=== PATIENT | male | born 1960 | race Caucasian/White ===

== ENCOUNTER 2016-12-17 17:10 | Emergency (ER) | payer OTHER | END 2016-12-17 21:48 | disposition other institution (70) | LOC: ER 17:10 | DX: J18.9 Pneumonia, unspecified organism (principal); R09.02 Hypoxemia; R00.0 Tachycardia, unspecified; I10 Essential (primary) hypertension; F17.210 Nicotine dependence, cigarettes, uncomplicated | CPT/HCPCS: 99285-25 ==

== ENCOUNTER 2016-12-17 17:10 | Inpatient (IN) | payer OTHER | END 2016-12-21 16:03 | disposition home or self-care (01) | DRG 871 | LOC: ER 17:10 → MS 21:48 | PROVIDERS: ADMIT Family Medicine | PROC: 3E0234Z Introduction of Serum, Toxoid and Vaccine into Muscle, Percutaneous Approach (ICD-10-PCS; principal; 2016-12-21) | DX: A41.9 Sepsis, unspecified organism (principal); J13 Pneumonia due to Streptococcus pneumoniae; F10.239 Alcohol dependence with withdrawal, unspecified; F10.251 Alcohol dependence with alcohol-induced psychotic disorder with hallucinations; K92.0 Hematemesis; F20.9 Schizophrenia, unspecified; R11.0 Nausea; I10 Essential (primary) hypertension; F41.9 Anxiety disorder, unspecified; M54.9 Dorsalgia, unspecified; R25.1 Tremor, unspecified; F32.9 Major depressive disorder, single episode, unspecified; R45.1 Restlessness and agitation; R19.7 Diarrhea, unspecified; F17.210 Nicotine dependence, cigarettes, uncomplicated; Z83.6 Family history of other diseases of the respiratory system; Z23 Encounter for immunization ==

== ENCOUNTER 2017-01-31 19:30 | Emergency (ER) | payer OTHER ==
[2017-01-31 19:57] LABS: BASO # 0.1 10_X3_uL (0.0-0.1); BASO % 0.6 % (0.2-1.2); EOS # 0.3 10_X3_uL (0.0-0.5); EOS % 2.8 % (0.8-7.0); GRAN # 5.2 10_X3_uL (1.8-5.4); GRAN % 45.1 % (34.0-67.9); HEMATOCRIT 35.4 % (40-51); HEMOGLOBIN 11.9 g/dL (13.7-17.5); LYMPH # 4.9 10_X3_uL (1.3-3.6); LYMPH % 42.5 % (21.8-53.1); MEAN CORPUSCULAR HEMOGLOBIN 33.8 pg (27.0-33.0); MEAN CORPUSCULAR HGB CONC 33.6 g/dL (32.0-36.0); MEAN CORPUSCULAR VOLUME 100.6 fL (79-92); MEAN PLATELET VOLUME 9.1 fl (7.5-11.5); PLATELET COUNT 251 x10_3/uL (163-337); RED BLOOD COUNT 3.52 x10_6/uL (4.6-6.1); RED CELL DISTRIBUTION WIDTH 15.2 % (11.6-14.4); WHITE BLOOD COUNT 11.6 x10_3/uL (4.2-9.1)
[2017-01-31 20:11] LABS: ALBUMIN 3.3 gm/dL (3.4-5.0); ALKALINE PHOSPHATASE 106 U/L (50-136); ALT/SGPT 14 U/L (7.53-40.17); AST/SGOT 18 U/L (6.66-35.34); BILIRUBIN,TOTAL 0.33 mg/dL (0.0-1.0); BLOOD UREA NITROGEN 11 mg/dL (7-18); CALCIUM 9.2 mg/dL (8.7-10.7); CARBON DIOXIDE 22 mmol/L (21-32); CREATINE KINASE 42 U/L (35-232); CREATININE 0.9 mg/dL (0.6-1.3); GLUCOSE,RANDOM 135 mg/dL (70-99); POTASSIUM 3.7 mmol/L (3.5-5.1); SODIUM 138 mmol/L (136-145); TOTAL PROTEIN 9.9 gm/dL (6.4-8.2)
== END 2017-01-31 22:25 | disposition home or self-care (01) ==
LOC: ER 19:30
PROVIDERS: Emergency Medicine
DX: R07.89 Other chest pain (principal); J40 Bronchitis, not specified as acute or chronic; I10 Essential (primary) hypertension; F17.210 Nicotine dependence, cigarettes, uncomplicated; Z79.899 Other long term (current) drug therapy
CPT/HCPCS: 36415; 71250; 80053; 82550; 82553; 85025; 85379; 86738; 87449; 96365; 96375; 99070; 99284-25; J1170

== ENCOUNTER 2017-02-06 09:33 | Inpatient (IN) | payer OTHER ==
[~2017-02-06] VITALS: Ht 172.7 cm; Wt 84.0 kg
[2017-02-06 10:08] LABS: BASO # 0.1 10_X3_uL (0.0-0.1); BASO % 0.9 % (0.2-1.2); EOS # 0.4 10_X3_uL (0.0-0.5); EOS % 3.6 % (0.8-7.0); GRAN # 6.6 10_X3_uL (1.8-5.4); GRAN % 53.1 % (34.0-67.9); HEMATOCRIT 36.2 % (40-51); LYMPH # 3.9 10_X3_uL (1.3-3.6); LYMPH % 31.3 % (21.8-53.1); MEAN CORPUSCULAR HEMOGLOBIN 33.3 pg (27.0-33.0); MEAN CORPUSCULAR HGB CONC 33.1 g/dL (32.0-36.0); MEAN CORPUSCULAR VOLUME 100.6 fL (79-92); MEAN PLATELET VOLUME 8.8 fl (7.5-11.5); MONO # 1.4 10_X3_uL (0.3-0.8); MONO % 11.1 % (5.3-12.2); PLATELET COUNT 286 x10_3/uL (163-337); RED CELL DISTRIBUTION WIDTH 15.3 % (11.6-14.4); WHITE BLOOD COUNT 12.4 x10_3/uL (4.2-9.1)
[2017-02-06 10:26] LABS: BLOOD UREA NITROGEN 10 mg/dL (7-18); CALCIUM 9.9 mg/dL (8.7-10.7); CARBON DIOXIDE 19 mmol/L (21-32); CREATININE 0.9 mg/dL (0.6-1.3); GLUCOSE,RANDOM 122 mg/dL (70-99); POTASSIUM 3.9 mmol/L (3.5-5.1); SODIUM 134 mmol/L (136-145)
[2017-02-07 06:57] LABS: HEMATOCRIT 33.8 % (40-51); HEMOGLOBIN 11.2 g/dL (13.7-17.5); MEAN CORPUSCULAR HEMOGLOBIN 33.3 pg (27.0-33.0); MEAN CORPUSCULAR HGB CONC 33.1 g/dL (32.0-36.0); MEAN CORPUSCULAR VOLUME 100.6 fL (79-92); MEAN PLATELET VOLUME 8.9 fl (7.5-11.5); RED BLOOD COUNT 3.36 x10_6/uL (4.6-6.1); RED CELL DISTRIBUTION WIDTH 15.3 % (11.6-14.4); WHITE BLOOD COUNT 14.5 x10_3/uL (4.2-9.1)
[2017-02-07 07:12] LABS: ALBUMIN 3.2 gm/dL (3.4-5.0); ALKALINE PHOSPHATASE 87 U/L (50-136); ALT/SGPT 23 U/L (7.53-40.17); AST/SGOT 26 U/L (6.66-35.34); BILIRUBIN,TOTAL 0.29 mg/dL (0.0-1.0); BLOOD UREA NITROGEN 12 mg/dL (7-18); CALCIUM 9.5 mg/dL (8.7-10.7); CARBON DIOXIDE 22 mmol/L (21-32); CREATININE 0.7 mg/dL (0.6-1.3); GLUCOSE,RANDOM 156 mg/dL (70-99); POTASSIUM 3.9 mmol/L (3.5-5.1); SODIUM 136 mmol/L (136-145); TOTAL PROTEIN 10.1 gm/dL (6.4-8.2)
[2017-02-08 07:09] LABS: ALBUMIN 3.1 gm/dL (3.4-5.0); ALKALINE PHOSPHATASE 82 U/L (50-136); ALT/SGPT 31 U/L (7.53-40.17); AST/SGOT 29 U/L (6.66-35.34); BILIRUBIN,TOTAL 0.38 mg/dL (0.0-1.0); BLOOD UREA NITROGEN 16 mg/dL (7-18); CALCIUM 9.3 mg/dL (8.7-10.7); CARBON DIOXIDE 24 mmol/L (21-32); CREATININE 0.8 mg/dL (0.6-1.3); GLUCOSE,RANDOM 120 mg/dL (70-99); POTASSIUM 3.9 mmol/L (3.5-5.1); SODIUM 137 mmol/L (136-145); TOTAL PROTEIN 9.8 gm/dL (6.4-8.2)
[2017-02-08 07:13] LABS: BASO # 0.1 10_X3_uL (0.0-0.1); BASO % 0.3 % (0.2-1.2); EOS # 0.1 10_X3_uL (0.0-0.5); EOS % 0.6 % (0.8-7.0); GRAN # 11.3 10_X3_uL (1.8-5.4); GRAN % 65.8 % (34.0-67.9); HEMOGLOBIN 11.1 g/dL (13.7-17.5); LYMPH # 4.1 10_X3_uL (1.3-3.6); LYMPH % 23.6 % (21.8-53.1); MEAN CORPUSCULAR HEMOGLOBIN 33.3 pg (27.0-33.0); MEAN CORPUSCULAR HGB CONC 32.6 g/dL (32.0-36.0); MEAN CORPUSCULAR VOLUME 102.1 fL (79-92); MEAN PLATELET VOLUME 9.4 fl (7.5-11.5); MONO # 1.7 10_X3_uL (0.3-0.8); MONO % 9.7 % (5.3-12.2); PLATELET COUNT 313 x10_3/uL (163-337); RED BLOOD COUNT 3.33 x10_6/uL (4.6-6.1); RED CELL DISTRIBUTION WIDTH 15.4 % (11.6-14.4); WHITE BLOOD COUNT 17.2 x10_3/uL (4.2-9.1)
[2017-02-09 07:34] LABS: HEMOGLOBIN 12.3 g/dL (13.7-17.5); MEAN CORPUSCULAR HEMOGLOBIN 33.2 pg (27.0-33.0); MEAN CORPUSCULAR HGB CONC 32.4 g/dL (32.0-36.0); MEAN CORPUSCULAR VOLUME 102.4 fL (79-92); MEAN PLATELET VOLUME 8.9 fl (7.5-11.5); RED BLOOD COUNT 3.71 x10_6/uL (4.6-6.1); RED CELL DISTRIBUTION WIDTH 15.6 % (11.6-14.4); WHITE BLOOD COUNT 17.6 x10_3/uL (4.2-9.1)
[2017-02-09 07:45] LABS: ALBUMIN 3.1 gm/dL (3.4-5.0); ALKALINE PHOSPHATASE 87 U/L (50-136); ALT/SGPT 32 U/L (7.53-40.17); AST/SGOT 25 U/L (6.66-35.34); BLOOD UREA NITROGEN 15 mg/dL (7-18); CALCIUM 9.8 mg/dL (8.7-10.7); CARBON DIOXIDE 25 mmol/L (21-32); CREATININE 0.7 mg/dL (0.6-1.3); GLUCOSE,RANDOM 112 mg/dL (70-99); SODIUM 132 mmol/L (136-145); TOTAL PROTEIN 10.1 gm/dL (6.4-8.2)
[2017-02-09 07:54] LABS: BILIRUBIN,TOTAL < 0.15 mg/dL (0.0-1.0)
[2017-02-10 07:20] LABS: BASO # 0.1 10_X3_uL (0.0-0.1); BASO % 0.5 % (0.2-1.2); EOS # 0.4 10_X3_uL (0.0-0.5); EOS % 2.3 % (0.8-7.0); GRAN # 9.5 10_X3_uL (1.8-5.4); GRAN % 52.1 % (34.0-67.9); HEMATOCRIT 36.4 % (40-51); HEMOGLOBIN 11.7 g/dL (13.7-17.5); LYMPH % 33.1 % (21.8-53.1); MEAN CORPUSCULAR HEMOGLOBIN 32.9 pg (27.0-33.0); MEAN CORPUSCULAR HGB CONC 32.1 g/dL (32.0-36.0); MEAN CORPUSCULAR VOLUME 102.2 fL (79-92); MEAN PLATELET VOLUME 8.9 fl (7.5-11.5); MONO # 2.2 10_X3_uL (0.3-0.8); PLATELET COUNT 339 x10_3/uL (163-337); RED BLOOD COUNT 3.56 x10_6/uL (4.6-6.1); RED CELL DISTRIBUTION WIDTH 15.4 % (11.6-14.4); WHITE BLOOD COUNT 18.2 x10_3/uL (4.2-9.1)
[2017-02-10 07:36] LABS: ALKALINE PHOSPHATASE 84 U/L (50-136); ALT/SGPT 32 U/L (7.53-40.17); AST/SGOT 24 U/L (6.66-35.34); BILIRUBIN,TOTAL 0.34 mg/dL (0.0-1.0); BLOOD UREA NITROGEN 20 mg/dL (7-18); CALCIUM 9.9 mg/dL (8.7-10.7); CARBON DIOXIDE 26 mmol/L (21-32); CREATININE 0.9 mg/dL (0.6-1.3); GLUCOSE,RANDOM 123 mg/dL (70-99); SODIUM 134 mmol/L (136-145); TOTAL PROTEIN 9.8 gm/dL (6.4-8.2)
[2017-02-11 12:06] LABS: HEMATOCRIT 37.3 % (40-51); HEMOGLOBIN 12.3 g/dL (13.7-17.5); MEAN CORPUSCULAR HEMOGLOBIN 33.4 pg (27.0-33.0); MEAN CORPUSCULAR VOLUME 101.4 fL (79-92); MEAN PLATELET VOLUME 8.6 fl (7.5-11.5); RED BLOOD COUNT 3.68 x10_6/uL (4.6-6.1); RED CELL DISTRIBUTION WIDTH 15.3 % (11.6-14.4); WHITE BLOOD COUNT 17.1 x10_3/uL (4.2-9.1)
[2017-02-12 13:18] LABS: HEMATOCRIT 34.1 % (40-51); HEMOGLOBIN 11.6 g/dL (13.7-17.5); MEAN CORPUSCULAR HEMOGLOBIN 33.9 pg (27.0-33.0); MEAN CORPUSCULAR VOLUME 99.7 fL (79-92); MEAN PLATELET VOLUME 8.7 fl (7.5-11.5); RED BLOOD COUNT 3.42 x10_6/uL (4.6-6.1); RED CELL DISTRIBUTION WIDTH 14.9 % (11.6-14.4); WHITE BLOOD COUNT 16.6 x10_3/uL (4.2-9.1)
== END 2017-02-12 19:55 | disposition home or self-care (01) | DRG 871 ==
LOC: ER 09:33 → MS 11:03 → UNDODEPER 02-09 11:29 → MS 02-11 15:28
PROVIDERS: Family Medicine; General Practice; ADMIT Family Medicine
PROC: 0DJD8ZZ Inspection of Lower Intestinal Tract, Via Natural or Artificial Opening Endoscopic (ICD-10-PCS; principal; 2017-02-12)
DX: A41.9 Sepsis, unspecified organism (principal); J18.9 Pneumonia, unspecified organism; J44.0 Chronic obstructive pulmonary disease with (acute) lower respiratory infection; J44.1 Chronic obstructive pulmonary disease with (acute) exacerbation; C90.00 Multiple myeloma not having achieved remission; I10 Essential (primary) hypertension; G40.909 Epilepsy, unspecified, not intractable, without status epilepticus; K21.9 Gastro-esophageal reflux disease without esophagitis; F41.9 Anxiety disorder, unspecified; G89.4 Chronic pain syndrome; Z83.3 Family history of diabetes mellitus; Z82.49 Family history of ischemic heart disease and other diseases of the circulatory system; F17.210 Nicotine dependence, cigarettes, uncomplicated; F10.21 Alcohol dependence, in remission; F12.10 Cannabis abuse, uncomplicated; M25.511 Pain in right shoulder; M25.512 Pain in left shoulder; M54.9 Dorsalgia, unspecified; N28.1 Cyst of kidney, acquired; K59.00 Constipation, unspecified; D72.829 Elevated white blood cell count, unspecified; F32.9 Major depressive disorder, single episode, unspecified; N40.2 Nodular prostate without lower urinary tract symptoms; M85.88 Other specified disorders of bone density and structure, other site; Z79.899 Other long term (current) drug therapy
CPT/HCPCS: 36415; 71020; 71250; 72131; 73030; 74000; 80048; 80053; 83605; 85025; 86738; 87040; 87070; 87205; 87449; 94640; 94664; 96365; 96375; 99070; 99284-25; G0480; J2704; J2930

== ENCOUNTER 2017-02-06 09:33 | Emergency (ER) | payer OTHER | END 2017-02-06 11:03 | disposition other institution (70) | LOC: ER 09:33 | DX: J18.9 Pneumonia, unspecified organism (principal); J84.9 Interstitial pulmonary disease, unspecified; F17.210 Nicotine dependence, cigarettes, uncomplicated; Z79.891 Long term (current) use of opiate analgesic; Z79.899 Other long term (current) drug therapy | CPT/HCPCS: 99284-25 ==

== ENCOUNTER 2017-02-27 12:16 | Emergency (ER) | payer OTHER | END 2017-02-27 13:19 | disposition home or self-care (01) | LOC: ER 12:16 | DX: C41.9 Malignant neoplasm of bone and articular cartilage, unspecified (principal); C79.89 Secondary malignant neoplasm of other specified sites; G89.3 Neoplasm related pain (acute) (chronic); F17.210 Nicotine dependence, cigarettes, uncomplicated; Z79.891 Long term (current) use of opiate analgesic; Z79.1 Long term (current) use of non-steroidal anti-inflammatories (NSAID) | CPT/HCPCS: 96372; 99282-25; J1170; J3010 ==